=== PATIENT | female | born 1965 | race Caucasian/White ===

== ENCOUNTER 2019-08-10 20:30 | Emergency (ER) | payer OTHER ==
[~2019-08-10] VITALS: Ht 162.6 cm; Wt 59.6 kg
[~2019-08-10 20:30] MED LIST: ASPI-817 PO; ATEN-51 PO; LEVO112T57 PO; LORA-441 PO; LOSA100T15 PO; PANT40TA4 PO
[2019-08-10 20:34] VITALS: Ht 162.6 cm; Wt 59.6 kg
[2019-08-10 22:52] VITALS: BP 120/93; PULSE 68; RESP 18
== END 2019-08-10 23:02 | disposition home or self-care (01) ==
LOC: E/R 20:30
DX: R10.31 Right lower quadrant pain (principal); I10 Essential (primary) hypertension; E03.9 Hypothyroidism, unspecified
CPT/HCPCS: 36415; 74176; 80053; 81003; 83690; 85025; Z7502